=== PATIENT | female | born 1995 | race African-American/Black ===

== ENCOUNTER 2022-08-08 17:32 | Emergency (ER) | payer OTHER, SELFPAY ==
[2022-08-08 17:43] VITALS: BP 114/71; PULSE 76; RESP 16; TEMP 36.2; O2SAT 100
--- NOTE | 2022-08-08 18:28 | ED.EAR ---
HPI - Ear Problem General Chief complaint: Ear Stated complaint: Sore Throat, Right Ear Irritation Source: patient Mode of arrival: ambulatory Limitations: no limitations History of Present Illness HPI Narrative: 27-year-old female presents to [facility] with complaints of right ear pain and sore throat since this morning. Patient has been taking [id number] Tylenol and Mucinex with minimal relief. Patient denies fever, body aches, chills, cough, shortness of breath or wheezing. Patient denies sick contacts. Patient denies recent travel MD Complaint: ear pain Location: right ear Duration: constant Discharge from ear: Reports no Treatment prior to arrival: oral analgesic Related Data Allergies Allergy/AdvReac Type Severity Reaction Status Date / Time No Known Allergies Allergy Verified 08/08/22 18:04 Review of Systems Constitutional: Constitutional: Denies chills, Denies fatigue, Denies fever(s) and Denies weakness ENT: Denies vertigo, Denies dizziness, Denies nasal congestion and Reports sore throat Comments: Right ear pain Cardiovascular: Cardiovascular: Denies chest pain and Denies rapid heart rate Respiratory: Respiratory: Denies chest congestion, Denies cough and Denies dyspnea Gastrointestinal: Gastrointestinal: Denies diarrhea, Denies nausea and Denies vomiting Integumentary/Breasts: Skin/Breast: Denies rash PMFSH Comments At time of signature, I agree with nursing past medical, surgical, social and family history. There is no relevant family history pertinent to the presenting complaint. Exam Const: General: healthy appearing, no acute distress and alert Nutritional Appearance: well nourished Orientation/consciousness: patient oriented x3 Limitations: no limitations HENMT: Head: normal to inspection Ears: external ears normal, EAC's normal and TM abnormal wth effusion serous on the right and erythematous on the right Face/Nose/Sinus: Normal external nose present and Normal nares present Mouth: Yes lip normal and Yes moist mucous membranes Throat: posterior oropharynx normal and uvula midline Neck: Neck: normal visual inspection Resp: Effort & Inspection: normal respiratory effort, not labored and no retractions Auscultation: clear to auscultation bilaterally, no crackles, no rales, no rhonchi and no wheezes Cardio: Rate: regular rate Rhythm: regular rhythm Skin: General skin exam: normal color Rashes: no rashes Neuro: General: patient oriented x3 Speech: normal speech Psych: Affect: normal affect Attitude: cooperative Course Course Level of Care: Express Care Visit Vital Signs Vital signs: Vital Signs Temperature 36.2 C L 08/08/22 17:43 Pulse Rate 76 08/08/22 17:43 Respiratory Rate 16 08/08/22 17:43 Blood Pressure 114/71 08/08/22 17:43 Pulse Oximetry 100 08/08/22 17:43 Oxygen Delivery Room Air 08/08/22 17:43 Temperature 36.2 C L 08/08/22 17:43 Pulse Rate 76 08/08/22 17:43 Respiratory Rate 16 08/08/22 17:43 Blood Pressure 114/71 08/08/22 17:43 Pulse Oximetry 100 08/08/22 17:43 Oxygen Delivery Room Air 08/08/22 17:43 Medical Decision Making MDM Narrative Medical decision making narrative: instructed patient to alternate Motrin and Tylenol as needed. Patient agrees to take antibiotic as prescribed. Instructed patient to follow-up with primary care provider if symptoms Do not improve. Differential Diagnosis Differential Diagnosis: cerumen impaction, acute otalgia, otitis externa Vital Signs Vital Signs: Vital Signs Temperature 36.2 C L 08/08/22 17:43 Pulse Rate 76 08/08/22 17:43 Respiratory Rate 16 08/08/22 17:43 Blood Pressure 114/71 08/08/22 17:43 Pulse Oximetry 100 08/08/22 17:43 Oxygen Delivery Room Air 08/08/22 17:43 Temperature 36.2 C L 08/08/22 17:43 Pulse Rate 76 08/08/22 17:43 Respiratory Rate 16 08/08/22 17:43 Blood Pressure 114/71 08/08/22 17:43 Pulse Oximetry 100
== END 2022-08-08 18:37 | disposition home or self-care (01) ==
PROVIDERS: Emergency Provider Nurse Practitioner Family
DX: H66.91 Otitis media, unspecified, right ear (principal)
CPT/HCPCS: 99213; G0463